=== PATIENT | male | born 1955 | race Caucasian/White ===

== ENCOUNTER → 2017-08-13 | Outpatient (CLI) | payer OTHER ==
--- NOTE | 2017-08-13 10:33 | REP ---
Left hand series: Four views. History: Pain in the left hand. Findings: Four views of the left hand demonstrate soft tissue swelling consistent with arthropathy at the first carpometacarpal articulation. There is also swelling and slight subluxation at the JAIL joint of the thumb. No fracture is seen. 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 Some subluxation at the JAIL joint. No acute bony abnormality. Signed by Avila Flores MD 08/13/2017 03:49 P
== END ==
LOC: M ADAMS 09:49
PROVIDERS: ATTEND Physician Assistant Medical
DX: M25.542 Pain in joints of left hand (principal)

== ENCOUNTER 2017-10-01 14:37 | Emergency (ER) | payer OTHER ==
[~2017-10-01] VITALS: Ht 162.6 cm; Wt 56.6 kg
[2017-10-01] MEDS ORDERED: IBUP-1114 PO (14:51)
[2017-10-01] MEDS ORDERED: valACYclovir HCL 500 MG TAB PO ONE (15:00)
--- NOTE | 2017-10-01 15:42 | REP ---
Clinical: Altered mental status. Comparison: None . Findings: Age-related atrophy and microvascular ischemic changes are appreciated. The ventricles and sulci are symmetric. Irizarry-white differentiation is maintained. There is no evidence for acute intracranial hemorrhage, mass/mass effect, pathology or infarction. No extra-axial fluid collection. Calvarium is intact. Paranasal sinuses and mastoid air cells are clear. Impression: Age related atrophy and microvascular ischemic changes. No acute intracranial hemorrhage, infarction, or mass/mass effect. Signed by Joselito Biggs MD 10/01/2017 03:33 P
[2017-10-01 15:56] LABS: BASO # 0.1 10^3/uL (0.0-0.2); BASO % 0.8 % (0.0-1.0); EOS # 0.2 10^3/uL (0.0-0.50); EOS % 1.4 % (0.0-3.0); IMMATURE GRANULOCYTE % 0.3 % (0-0); LYMPH # 1.8 10^3/uL (1.5-4.5); MEAN CORPUSCULAR HEMOGLOBIN 28.9 pg (27.0-33.0); MEAN CORPUSCULAR HGB CONC 33.1 g/dl (32.0-36.5); MEAN CORPUSCULAR VOLUME 87.4 fl (80.0-96.0); MONO # 0.9 10^3/uL (0.0-0.8); MONO % 6.9 % (0.0-5.0); NEUTROPHILS # 10.1 10^3/uL (1.8-7.7); NEUTROPHILS % 76.6 % (36.0-66.0); PLATELET COUNT, AUTOMATED 303 10^3/uL (150-450); RED CELL DISTRIBUTION WIDTH 13.7 % (11.5-14.5); WHITE BLOOD COUNT 13.2 10^3/uL (4.0-10.0)
[2017-10-01 16:18] LABS: ALBUMIN 3.9 GM/DL (3.2-5.2); ALBUMIN/GLOBULIN RATIO 1.11 (1.00-1.93); ALKALINE PHOSPHATASE 132 U/L (45-117); ALT/SGPT 18 U/L (12-78); ANION GAP 5 MEQ/L (8-16); AST/SGOT 8 U/L (7-37); BILIRUBIN,DIRECT 0.2 MG/DL (0.0-0.2); BILIRUBIN,TOTAL 0.3 MG/DL (0.2-1.0); BLOOD UREA NITROGEN 26 MG/DL (7-18); CALCIUM LEVEL 9.6 MG/DL (8.8-10.2); CARBON DIOXIDE LEVEL 29 MEQ/L (21-32); CHLORIDE LEVEL 107 MEQ/L (98-107); CREATININE FOR GFR 1.22 MG/DL (0.70-1.30); GLOMERULAR FILTRATION RATE > 60.0 (>49); GLUCOSE, FASTING 95 MG/DL (80-110); POTASSIUM SERUM 5.1 MEQ/L (3.5-5.1); SODIUM LEVEL 141 MEQ/L (136-145); TOTAL PROTEIN 7.4 GM/DL (6.4-8.2)
[2017-10-01] MEDS ORDERED: predniSONE 20 MG TAB PO ONE (16:45)
[2017-10-01] MEDS ORDERED: VALT500T PO (16:47)
[2017-10-01] MEDS ORDERED: PRED20TA PO ×2 (16:47)
[2017-10-01 16:59] VITALS: BP 151/79
--- NOTE | 2017-10-01 18:15 | ECGEPIP ---
Stationary ECG Study [facility] - ED Test Date: 2017-10-01 Pat Name: DOROTEO CARLOS Department: Room: - Gender: M [employer]: : 1955 Requested By: JACKI SHRESTHA Order Number: [id number] Reading MD: Alba Ribeiro Measurements Intervals [place] Rate: 55 P: 37 AL: 138 QRS: -5 QRSD: 81 T: 3 QT: 374 QTc: 358 Interpretive Statements SINUS BRADYCARDIA NSTTW ABNORMALITY NO PRIOR FOR COMPARISON Electronically Signed On 10-01-2017 18:15:28 EST by Alba Ribeiro
--- NOTE | 2017-10-03 10:53 | REP ---
Clinical: Altered mental status . Comparison: None . Technique: PA and lateral. Findings: The mediastinum and cardiac silhouette are normal. The lung lei are clear and without acute consolidation, effusion, or pneumothorax. The skeletal structures are intact and normal. Impression: 1. No acute cardiopulmonary process. Signed by Joselito Biggs MD 10/01/2017 03:41 P
== END 2017-10-01 17:03 | disposition home or self-care (01) ==
LOC: M ED 14:37
DX: G51.0 Bell's palsy (principal); R00.2 Palpitations; R94.31 Abnormal electrocardiogram [ECG] [EKG]; I10 Essential (primary) hypertension; Z86.73 Personal history of transient ischemic attack (TIA), and cerebral infarction without residual deficits; F17.200 Nicotine dependence, unspecified, uncomplicated; Z82.49 Family history of ischemic heart disease and other diseases of the circulatory system